=== PATIENT | female | born 1965 | race Caucasian/White ===

== ENCOUNTER 2017-01-27 11:01 | Emergency (ER) | payer OTHER ==
[~2017-01-27] VITALS: Ht 162.6 cm; Wt 77.1 kg
[~2017-01-27 11:01] MED LIST: AMOXIL500 MG PO; KEFLEX500 MG PO; NORCO 325 MG-51 TAB PO; PERCOCET 325 MG1 TA2 PO; VALTREX1 GM PO
[2017-01-27 11:15] VITALS: BP 147/93
--- NOTE | 2017-01-27 11:40 | ED GENERAL ADULT ---
History of Present Illness General Chief Complaint: Lower Extremity Injury Stated Complaint: RT FOOT PAIN, LT SHOULDER PAIN Source: patient Exam Limitations: no limitations Vital Signs & Intake/Output Vital Signs & Intake/Output ED Intake and Output 01/28 0000 01/27 1200 Intake Total Output Total Balance Patient 170 lb Weight Allergies Coded Allergies: MDX - Naproxen (From NAPROSYN) (05/25/13) MDX - Tramadol (TRAMADOL) (NAUSEA 05/25/13) Uncoded Allergies: ALLEVE (06/16/11) Reconcile Medications Ibuprofen 800 MG TABLET 1 TAB PO TID PRN PAIN Triage Note: PT STATES THAT SHE JUST SWITCHED PMD AND THAT SHE HAS CHRONIC L SHOULDER AND L FOOT PAIN. CALLED NEW PMD WHO HAS NOT SEEN HER YET FOR SOMETHING FOR PAIN AND HE TOLD HER HE HAS NOT SEEN HER YET SO HE IS NOT COMFORTABLE PRESCRIBING MEDS Triage Nurses Notes Reviewed? yes Onset: 2 WEEKS AGO Duration: worse persistent since (2 WEEKS) Timing: recent history Injury Environment: home Severity: moderate Severity Numbers: 6 Modifying Factors: Improves With: immobilization. Worsens With: movement. HPI: Patient is a 51-year-old female presenting to the emergency department she complaint of bruising to right foot and left shoulder pain. She reports that the left shoulder pain has been going on for the past year and a half. The right foot pain or tingling going on for the past 2 weeks. She reports that she dropped something on her foot 2 weeks ago. Pain is achy and throbbing. No relief with Tylenol. Denies any nausea vomiting fevers or chills chest and shortness of breath. No other injury. She has an appointment next week with her primary care physician, she was told that she may need to see an orthopedic about her shoulder. No new injuries to that shoulder. (KIERSTEN MACIEL) Past History Travel History Traveled to [place] past 21 day No Medical History Any Pertinent Medical History? see below for history Neurological: NONE EENT: cold sores Cardiovascular: NONE Respiratory: NONE Gastrointestinal: NONE Hepatic: NONE Renal: NONE Musculoskeletal: NONE Psychiatric: NONE Endocrine: NONE Blood Disorders: NONE Cancer(s): NONE SPRAY PAINTER HELPER/Reproductive: NONE Surgical History Surgical History: non-contributory Psychosocial History What is your primary language Nauruan Tobacco Use: Never used ETOH Use: denies use Illicit Drug Use: denies illicit drug use Family History Hx Contributory? No (KIERSTEN MACIEL) Review of Systems Review of Systems Constitutional: Reports: no symptoms. Comments Review of systems: See HPI, All other systems negative. Constitutional, no chills fever or weight loss HEENT: No visual changes no sore throat no congestion Cardiovascular: No chest pain Skin, no jaundice no rashes Respiratory: No dyspnea cough sputum or hemoptysis GI: No nausea no vomiting Muscle skeletal: no back pain, no neck pain, Neurologic: No numbness no confusion Psych: No stress anxiety Immunology: No splenectomy or history of AIDS (KIERSTEN MACIEL) Physical Exam Physical Exam General Appearance: well developed/nourished, no apparent distress, alert, awake , comfortable Comments: Well-developed well-nourished no apparent distress. HEENT: Atraumatic, extraocular motion intact Neck: Supple, no lymphadenopathy Back: Nontender Respiratory: No respiratory distress Extremities: No edema, tenderness palpation of the dorsum of the right foot at the base of the right fourth toe. Mild ecchymosis. Near full range of motion somewhat limited secondary to pain. Pedal pulses are 2+ bilaterally. Limited range of motion of left shoulder secondary to pain. Mild pain to palpation over the left bicep tendon. German Teacher strength is equal and symmetric bilaterally. No obvious deformity noted over the foot or the shoulder. Neuro: Alert and oriented x3, motor and sensory intact in upper and lower extremities bilaterally. Psych: Mood affect normal, normal memory normal judgment. Core Measures ACS in differential dx? No CVA/TIA Diagnosis: No Severe Sepsis Present: No Septic Shock Present: No (KIERSTEN MACIEL) Progress Differential Diagnoses I considered the following diagnoses in my evaluation of the patient: FRACTURE, CONTUSION, DISLOCATION, MUSCLE STRAIN Plan of Care: Orders Procedure Date/time Status XRY-SHOULDER COMPLETE-LEFT 01/27 113 Active XRY-FOOT COMPLETE, RIGHT 01/27 113 Active Diagnostic Imaging: Viewed by Me: Radiology Read. Discussed w/RAD: Radiology Read. Radiology Impression: EXAMINATION: XR SHOULDER, LEFT X-RAY LEFT FOOT, RIGHT CLINICAL INFORMATION: Pain. Status post injury. COMPARISON: None TECHNIQUE: Four views of the left shoulder. 3 views of the right foot FINDINGS: LEFT SHOULDER The bones and soft tissues are normal. No fracture. Glenohumeral and acromioclavicular alignment is anatomic with normal joint space. No abnormal soft tissue calcifications. RIGHT FOOT Normal bony mineralization. No definite evidence of acute fracture or dislocation. Accessory ossicles noted adjacent to the cuboid bone. Lucency within the lateral larger ossicle likely represents a chronic change. At the site of the patient's discomfort right fifth toe, no acute osseous abnormality identified. No gross soft tissue swelling. Visualized joints are well preserved. IMPRESSION: No definite evidence of acute osseous abnormality. DICTATED BY: MITCH JUSTIN MD DATE/TIME DICTATED:01/27/171246 FOOD HANDLER:LAMBERTO DATE/TIME TRANSCRIBED:01/27/171246 CONFIDENTIAL, DO NOT COPY WITHOUT APPROPRIATE AUTHORIZATION. Initial ED EKG: none (KIERSTEN MACIEL) Departure Departure Time of Disposition: 1303 Disposition: HOME OR SELF CARE Condition: Stable Clinical Impression Primary Impression: Contusion Qualifiers: Encounter type: initial encounter Contusion area: foot Laterality: right Qualified Code: S90.31XA - Contusion of right foot, initial encounter Secondary Impressions: Shoulder strain Qualifiers: Encounter type: initial encounter Laterality: left Qualified Code: S46.912A - Strain of unspecified muscle, fascia and tendon at shoulder and upper arm level, left arm, initial encounter Referrals: DANIEL ADLER MD (PCP/Family) Additional Instructions: Follow-up with orthopedics call to make an appointment. Rest ice and elevate affected areas. Take IBUPROFEN as prescribed to help with pain and inflammation. Return for worsening symptoms or concerns. Departure Forms: Customer Survey General Discharge Information Prescriptions: Current Visit Scripts Ibuprofen 1 TAB PO TID PRN PAIN #20 TAB (KIERSTEN MACIEL) PA/ELECTRICAL ASSEMBLER Co-Sign Statement Statement: ED Attending supervision documentation- [] I saw and evaluated the patient. I have also reviewed all the pertinent lab results and diagnostic results. I agree with the findings and the plan of care as documented in the PA's/ELECTRICAL ASSEMBLER's documentation. [X] I have reviewed the ED Record and agree with the PA's/ELECTRICAL ASSEMBLER's documentation. [] Additions or exceptions (if any) to the PAs/ELECTRICAL ASSEMBLER's note and plan are summarized below: [] (JONEL CORDOVA,SALEEM) Critical Care Note Critical Care Note Critical Care Time: non-applicable (KIERSTEN MACIEL)
--- NOTE | 2017-01-27 13:01 | RADIOLOGY REPORT ---
EXAMINATION: XR SHOULDER, LEFT X-RAY LEFT FOOT, RIGHT CLINICAL INFORMATION: Pain. Status post injury. COMPARISON: None TECHNIQUE: Four views of the left shoulder. 3 views of the right foot FINDINGS: LEFT SHOULDER The bones and soft tissues are normal. No fracture. Glenohumeral and acromioclavicular alignment is anatomic with normal joint space. No abnormal soft tissue calcifications. RIGHT FOOT Normal bony mineralization. No definite evidence of acute fracture or dislocation. Accessory ossicles noted adjacent to the cuboid bone. Lucency within the lateral larger ossicle likely represents a chronic change. At the site of the patient's discomfort right fifth toe, no acute osseous abnormality identified. No gross soft tissue swelling. Visualized joints are well preserved. IMPRESSION: No definite evidence of acute osseous abnormality.
[2017-01-27] MEDS ORDERED: IBUPROFEN800 M1 PO (13:05)
== END 2017-01-27 13:03 ==
LOC: ERH 11:01
DX: S46.912A Strain of unspecified muscle, fascia and tendon at shoulder and upper arm level, left arm, initial encounter (principal); S90.32XA Contusion of left foot, initial encounter; W20.8XXA Other cause of strike by thrown, projected or falling object, initial encounter
CPT/HCPCS: 73030-LT; 73630-RT